=== PATIENT | female | born 1995 | race Two or more races ===

== ENCOUNTER 2018-11-09 05:19 | Emergency (ER) | payer OTHER ==
[2018-11-09 05:26] VITALS: BP 110/69
--- NOTE | 2018-11-09 05:27 | ED Physician Documentation ---
PD HPI FEMALE - Stated complaint Stated Complaint: FEMALE - Chief complaint Chief Complaint: General - History obtained from History obtained from: Patient - History of Present Illness Timing - onset: How many days ago (4) Timing - duration: Days (4) Timing - details: Gradual onset, Still present Associated symptoms: Dysuria, Urinary frequency. No: Fever, Back pain, Vaginal discharge, Genital sore/lesion Contributing factors: No: Exposed to STD Recently seen: Not recently seen Review of Systems Constitutional: denies: Fever, Chills GI: reports: Abdominal Pain. denies: Nausea, Vomiting : reports: Dysuria, Frequency. denies: Discharge Skin: denies: Rash Musculoskeletal: denies: Back pain PD PAST MEDICAL HISTORY - Past Medical History Past Medical History: No Cardiovascular: None Respiratory: None Neuro: None Endocrine/Autoimmune: None GI: None DISPATCH MANAGER: None : None HEENT: None Psych: None Musculoskeletal: None Derm: None - Past Surgical History Past Surgical History: No - Present Medications Home Medications: Ambulatory Orders Medication Instructions Recorded Confirmed Naproxen 375 mg PO BID #15 tablet 11/09/18 Phenazopyridine HCl [Pyridium] 200 mg PO TID PRN #6 tablet 11/09/18 Sulfamethox/Trimeth 800/160 1 each PO BID #10 tablet 11/09/18 [Bactrim Ds 800/160] - Allergies Allergies/Adverse Reactions: Allergies Allergy/AdvReac Type Severity Reaction Status Date / Time No Known Drug Allergies Allergy Verified 11/09/18 05:21 - Social History Does the pt smoke?: No Smoking Status: Never smoker Does the pt drink ETOH?: No Does the pt have substance abuse?: No - Immunizations Immunizations are current?: Yes - POLST Patient has POLST: No PD ED PE NORMAL - Vitals Vital signs reviewed: Yes - General General: Alert and oriented X 3, Well developed/nourished, Other (appears uncomfortable) - Abdomen Abdomen: Soft, Non distended, Other (some tender suprapubic area. Not tender RLQ.) - Female Female : Deferred - Back Back: No CVA TTP - Derm Derm: Normal color Results - Vitals Vitals: Vital Signs - 24 hr 11/09/18 11/09/18 05:20 05:21 Temperature 36.2 C L Heart Rate 84 Respiratory 18 18 Rate Blood Pressure 110/69 O2 Saturation 99 Oxygen O2 Source Room air - Labs Labs: Laboratory Tests 11/09/18 05:15 Urine Color YELLOW Urine Clarity HAZY Urine pH 6.0 Ur Specific [place] >=1.030 H Urine Protein 30 H Urine Glucose (UA) NEGATIVE Urine Ketones NEGATIVE Urine Occult Blood LARGE H Urine Nitrite NEGATIVE Urine Bilirubin NEGATIVE Urine Urobilinogen 0.2 (NORMAL) Ur Leukocyte Esterase MODERATE H Ur Microscopic Review INDICATED Urine Culture Comments Not Reportable Urine HCG, Qual NEGATIVE Departure - Departure Disposition: Home, Self Care Clinical Impression: Dysuria UTI (urinary tract infection) Qualifiers: Urinary tract infection type: acute cystitis Hematuria presence: without hematuria Qualified Code(s): N30.00 - Acute cystitis without hematuria Condition: Stable Record reviewed to determine appropriate education?: Yes Instructions: ED UTI Cystitis Female Follow-Up: ABHILASH Oliva [Provider Group] Prescriptions: Naproxen 375 mg PO BID #15 tablet Phenazopyridine HCl [Pyridium] 200 mg PO TID PRN #6 tablet PRN Reason: dysuria Sulfamethox/Trimeth 800/160 [Bactrim Ds 800/160] 1 each PO BID #10 tablet Comments: Stay well-hydrated. Bactrim antibiotic twice daily for 5 more days to help with the infection. Phenazopyridine as needed for discomfort. You can also use naproxen twice daily for inflammation and to help with the pain 2. Recheck if not improving over the next couple of days.
[2018-11-09 05:29] LABS: BILIRUBIN,URINE NEGATIVE (NEGATIVE); CLARITY,URINE HAZY (CLEAR); GLUCOSE, URINE (UA) NEGATIVE (NEGATIVE); KETONES,URINE (UA) NEGATIVE (NEGATIVE); LEUKOCYTE ESTERASE, URINE MODERATE (NEGATIVE); NITRITE,URINE NEGATIVE (NEGATIVE); OCCULT BLOOD,URINE LARGE (NEGATIVE); PROTEIN,URINE 30 mg/dL (NEGATIVE); UROBILINOGEN,URINE 0.2 (NORMAL) E.U./dL (NORMAL)
[2018-11-09 05:30] LABS: HCG UR QUAL NEGATIVE
[2018-11-09] MEDS ORDERED: SULFAMETH/TRIMETH DS 800/160 MG TABLET PO STA (05:31)
[2018-11-09] MEDS ORDERED: PHENAZOPYRIDINE 100 MG TABLET PO STA (05:31)
[2018-11-09] MEDS ORDERED: NAPROXEN 250 MG TABLET PO STA (05:31)
[2018-11-09 05:35] LABS: BACTERIA,URINE Few /HPF (None Seen); RBC,URINE TNTC /HPF (0-5); SQUAMOUS EPITHELIAL CELL,UR FEW Squamous (<= Few)
== END 2018-11-09 05:50 | disposition home or self-care (01) ==
LOC: ED 05:19
DX: N30.00 Acute cystitis without hematuria (principal)
CPT/HCPCS: 81001; 81025; 87077; 87086; 87181; 99283; A9270; 81003